=== PATIENT | female | born 1980 | race Caucasian/White ===

== ENCOUNTER → 2021-02-11 10:09 | Outpatient (BNVA) | payer MEDICARE, MEDICAID, SELFPAY | PROVIDERS: Family Provider Family Medicine; Visit Provider Obstetrics & Gynecology | DX: R10.32 Left lower quadrant pain (principal) | CPT/HCPCS: 76830 ==

== ENCOUNTER → 2021-02-17 11:38 | Outpatient (BNVA) | payer MEDICARE, MEDICAID, SELFPAY | PROVIDERS: Family Provider Family Medicine; Referring Provider Nurse Practitioner Family; Visit Provider Specialist | DX: R20.0 Anesthesia of skin (principal); R20.2 Paresthesia of skin | CPT/HCPCS: 95908 ==

== ENCOUNTER 2022-01-06 10:32 | Emergency (ER) | payer MEDICARE, MEDICAID, SELFPAY ==
[2022-01-06 11:06] VITALS: BP 125/68; PULSE 73; RESP 16; TEMP 36.7; O2SAT 97
--- NOTE | 2022-01-06 12:25 | XRR_ITS ---
PROCEDURE INFORMATION: Exam: XR Left Knee Exam date and time: 01/06/2022 12:34 PM Age: 41 years old Clinical indication: Pain; Knee; Left; Additional info: Pain, she believes the knee is dislocated. Unable to bend the knee TECHNIQUE: Imaging protocol: Radiologic exam of the Left knee. Views: 1 or 2 views. COMPARISON: No relevant prior studies available. FINDINGS: Bones/joints: Negative for acute bony abnormality. Soft tissues: Unremarkable XR/XR knee LT 1-2V [id number] IMPRESSION: No acute findings.
[2022-01-06] MEDS: ketorolac 60 mg/2 mL INJ IM (14:04)
--- NOTE | 2022-01-06 14:18 | W.ED.EXTPRO ---
HPI - Extremity Problem General: Chief complaint: Extremity Injury, Lower Stated complaint: left knee cap is in pain Time Seen by Provider: 01/06/22 11:15 History of Present Illness: Patient reports that yesterday she was bending down to do something and her left knee [place] like it dislocated. She reports that she has been unable to bend the knee since that time. She is limping straight leg. She reports significant swelling. Review of Systems Musc: Reports: other (Left knee pain, swelling, decreased range of motion) [facility] ED PFSH: Surgical History S/P cholecystectomy 2000- [place] S/P hysterectomy 2013- [place] S/P tubal ligation 2002- [place] Family History Grandmother Stroke maternal Hypertension maternal Heart disease maternal Colon cancer paternal, 40's Mother Uterine cancer Cervical cancer Family/Other Breast cancer maternal great aunt, 60's Denies family history of Ovarian cancer Diabetes Clotting disorder Hyperlipidemia Anesthesia complication Bleeding disorder Thyroid condition Social History Smoking and tobacco status: former smoker Quit status (tobacco): has quit using tobacco Year quit tobacco: over 10 years ago Alcohol intake: current Alcohol intake frequency: holidays/special occasions only Alcohol type: wine and hard liquor Physical Exam Const: COMMON NORMALS: patient oriented x3 and alert OTHER: Patient is in obvious pain and sitting at the edge of the chair with the left leg out straight. Resp: COMMON NORMALS: normal respiratory effort and No use of accessory muscles Extremity: NARRATIVE EXTREMITY EXAM: Patient with obvious swelling over the left knee more medially and anteriorly. It is tender to palpate the entire knee but more so the medial collateral ligaments. Patient exam is limited by pain. Patient does not bend the knee at all. CSM within normal limits to distal leg. Neuro: COMMON NORMALS: patient oriented x3 SENSORIUM/ORIENTATION: Yes alert Course Vital Signs: Vital signs: Vital Signs Temperature 98.0 F 01/06/22 11:06 Pulse Rate 75 01/06/22 14:52 Respiratory Rate 16 01/06/22 14:52 Blood Pressure 125/68 01/06/22 11:06 Pulse Oximetry 97 01/06/22 14:52 MDM - Extremity (Nontraumatic) Medical Decision Making Consider knee strain versus dislocation versus internal derangement. X-ray knee 2 view wet read shows no acute osseous deformity. Radiologist read shows no acute findings. Discussed conservative treatments with patient. Encouraged her to rest, ice, elevate the leg. Encourage nonweightbearing for the next 3 to 5 days. She states that she cannot miss work. She reports that she is working for [email or web address] during Wednesday. Placed patient in a knee immobilizer and provide her with crutches. Toradol administered in ER today may resume ibuprofen 8 hours from now. I would call to make a follow-up appointment with primary care provider for early next week for reevaluation. Return to ER as needed for any new or worsening symptoms. Patient declined needing a work note. Lab Data Radiology Impressions Knee X-Ray 01/06/22 12:25 IMPRESSION: No acute findings. Discharge Plan Discharge Patient Disposition: Home Clinical Impression: Knee MCL sprain Condition: Stable Prescriptions: No Action ibuprofen 800 mg tablet 800 mg PO Q8H PRN (Reason: pain) Qty: 90 1RF Discharge Orders: Discharge ED (Routine); Ordered 01/06/22 Ordered By: Chelsea Wen Discharge Diet: Usual diet Discharge Activity: Limit activity as instructed Patient Instructions: Knee Sprain (ED), Knee Immobilizer (ED) Activity Restrictions/Additional Instructions: I recommend nonweightbearing for the next 3 to 5 days with use of crutches and knee immobilizer. Ice, rest, elevate the extremity. Follow-up with primary care provider next week for reevaluation. Return to the ER as needed for any new or worsening symptoms. Coding Level of Care Code ED [employer] Supervisor for Page Fwd Exam Expanded Problem Focused
[2022-01-06 14:52] VITALS: PULSE 75; RESP 16; O2SAT 97
== END 2022-01-06 14:55 | disposition home or self-care (01) ==
PROVIDERS: Emergency Provider Nurse Practitioner Family
DX: S83.412A Sprain of medial collateral ligament of left knee, initial encounter (principal); X50.1XXA Overexertion from prolonged static or awkward postures, initial encounter; Z87.891 Personal history of nicotine dependence
CPT/HCPCS: 29530; 73560; 96372; 99284; E0114; J1885

== ENCOUNTER → 2022-05-06 17:52 | Outpatient (BNVA) | payer MEDICARE, MEDICAID, BC, SELFPAY | PROVIDERS: Visit Provider Registered Nurse Neonatal Intensive Care | DX: R30.0 Dysuria (principal); N30.00 Acute cystitis without hematuria | CPT/HCPCS: 81000 ==

== ENCOUNTER 2022-05-07 08:34 | Outpatient (CLI) | payer MEDICARE, MEDICAID, SELFPAY ==
--- NOTE | 2022-05-07 08:52 | MM_ITS ---
WS: [id number] BILATERAL SCREENING DIGITAL TOMOSYNTHESIS MAMMOGRAM WITH CAD HISTORY: SCREEN COMPARISON: None available. Bilateral CC and MLO views with tomosynthesis and synthetic mammography submitted. Computer aided det ection analyzed. Breast composition: The breasts are heterogeneously dense, which may obscure small masses. No suspici ous masses, microcalcifications or architectural distortion. MM/[place] [id number] IMPRESSION: BI-RADS: 1-Negative FOLLOW UP: 1 Year Follow-up
== END 2022-05-07 08:35 | disposition home or self-care (01) ==
LOC: RAD 08:42
PROVIDERS: PCP Nurse Practitioner Family; Visit Provider Nurse Practitioner Women's Health
DX: Z12.31 Encounter for screening mammogram for malignant neoplasm of breast (principal)
CPT/HCPCS: 77063; 77067

== ENCOUNTER → 2023-02-04 09:15 | Outpatient (BNVA) | payer MEDICARE, MEDICAID, SELFPAY | PROVIDERS: PCP Nurse Practitioner Family; Visit Provider Nurse Practitioner Women's Health | DX: Z12.4 Encounter for screening for malignant neoplasm of cervix (principal); N89.8 Other specified noninflammatory disorders of vagina | CPT/HCPCS: 87624 ==

== ENCOUNTER → 2023-04-21 15:31 | Outpatient (BNVA) | payer MEDICARE, SELFPAY | PROVIDERS: PCP Nurse Practitioner Family; Visit Provider Nurse Practitioner Women's Health | DX: N95.1 Menopausal and female climacteric states (principal) | CPT/HCPCS: 82670; 83001 ==